=== PATIENT | female | born 1940 | race Caucasian/White ===

== ENCOUNTER 2023-09-06 16:24 | Emergency (ER) | payer MEDICARE, OTHER ==
[2023-09-06] MEDS: ACETAMINOPHEN 500 MG TABLET PO STA (17:14)
[2023-09-06] MEDS: LIDOCAINE-EPINEPH-TETRACAINE 3 ML SYRINGE TOP STA (17:18)
--- NOTE | 2023-09-06 18:46 | CT Report ---
PROCEDURE: Maxillofacial WO INDICATIONS: GLF, left eye hematoma, eyesocket vs rock TECHNIQUE: Noncontrast 1.5 mm thick axial images acquired from the mandible through the frontal sinuses, with co pablo and sagittal reformatting. For radiation dose reduction, the following was used: automated ex posure control, adjustment of mA and/or kV according to patient size. COMPARISON: Correlation is made with the accompanying imaging. FINDINGS: Image quality: Excellent. Bones and teeth: Orbital barbosa are intact. Sinus barbosa show no fracture or deformity. Nasal bones and septum are intact. There is mild chronic leftward nasal septal deviation. Visualized portions of the mandible demonstrate no fractures or subluxation. Zygomatic arches are intact. Pterygoid plate s are intact. Visualized portions of the skull base and auditory canals are intact. Sinuses: There is near complete opacification seen of the left maxillary sinus. This measures 33 Houn sfield units, which is consistent with blood. Mild mucosal thickening can be seen within the anterior left ethmoid air cells. The paranasal sinuses are otherwise within normal limits. No significant abn ormal fluid can be seen within the mastoid air cells. Soft tissues: Soft tissue swelling can be seen within the left forehead/periorbital region. Soft tiss ue gas is seen, which is reflective of soft tissue laceration. Vascular: Visualized vascular structures appear normal in the absence of contrast. Bony vascular fo ramina and canals are intact. IMPRESSION: Left forehead/left periorbital region soft tissue hematoma with laceration. No facial bone fracture can be seen. There is near complete opacification of the left maxillary sinus, with high density material, which i s attributed to blood. However, differential diagnosis includes chronic sinusitis with dense secretio ns. Reviewed by: Pascual Espino MD on 09/06/2023 5:44 PM SUZANNA Approved by: Pascual Espino MD on 09/06/2023 5:44 PM AKDT Station ID: [id number]
--- NOTE | 2023-09-06 18:48 | CT Report ---
PROCEDURE: Head WO INDICATIONS: GLF, face vs rock TECHNIQUE: Noncontrast 4.5 mm thick angled axial sections acquired from the foramen magnum to the vertex. For r adiation dose reduction, the following was used: automated exposure control, adjustment of mA and/or kV according to patient size. COMPARISON: Correlation is made with the accompanying imaging. FINDINGS: Image quality: There is streak artifact seen through the skull base. CSF spaces: Basal cisterns are patent. No extra-axial fluid collections. Ventricles are normal in size and shape. Brain: No midline shift. No intracranial masses or hemorrhage. Wallace-white matter interface is norm al. Skull and face: Soft tissue swelling with laceration can be seen involving the left forehead/left pe riorbital region. No regional fracture can be seen. Calvarium and visualized facial bones are intact, without suspicious lesions. Sinuses: The left maxillary sinus is nearly completely opacified with dense soft tissue material. The re is also moderate mucosal thickening involving the left anterior ethmoid air cells. The paranasal s inuses are otherwise unremarkable. No significant abnormal fluid can be seen within the mastoid air c ells. IMPRESSION: Left forehead/left periorbital soft tissue hematoma with laceration. Within the left maxillary sinus, there is hyperdense material, which likely represents blood. However , differential diagnosis includes chronic sinus disease. No intracranial hemorrhage is seen. No significant intracranial abnormality is seen. Reviewed by: Pascual Espino MD on 09/06/2023 5:46 PM AKCLYDE Approved by: Pascual Espino MD on 09/06/2023 5:46 PM AKDT Station ID: [id number]
--- NOTE | 2023-09-06 18:50 | CT Report ---
PROCEDURE: Cervical Spine WO INDICATIONS: GLF, face vs rock TECHNIQUE: Noncontrast 3 mm thick sections acquired from the skull base to the T4 level. Sagittal and coronal r eformats were then constructed. Dedicated oblique axial images were performed through the disk level s. For radiation dose reduction, the following was used: automated exposure control, adjustment of mA and/or kV according to patient size. COMPARISON: Correlation is made with the accompanying imaging. FINDINGS: Image quality: Excellent. Bones: No fractures or dislocations. Visualized superior ribs are intact. Multiple levels of under lying cervical spine degenerative change can be seen. Soft tissues: There is partial visualization of a left thyroid region mass measuring at least 7.2 cm . Associated mass effect can be seen upon the trachea, which is deviated to the left. Postoperative c lips are seen, which are suggestive of prior right thyroidectomy. Prevertebral soft tissues are lisbeth l in thickness. No paravertebral hematomas. No apical pneumothoraces. IMPRESSION: No acute cervical spine fracture can be seen. Multiple levels of underlying cervical spine degenerative change are seen. There is a left thyroid region soft tissue mass, with associated mass effect on the trachea, which is deviated to the left. Please correlate with known patient history. If not previously worked up, benton tional evaluation is recommended, beginning with a dedicated thyroid ultrasound. Reviewed by: Pascual Espino MD on 09/06/2023 5:49 PM SUZANNA Approved by: Pascual Espino MD on 09/06/2023 5:49 PM SUZANNA Station ID: [id number]
--- NOTE | 2023-09-06 19:50 | ED Physician Documentation ---
PD HPI HEAD INJURY - Stated complaint Stated Complaint: FALL - Chief complaint Chief Complaint: Trauma Hd/Nk - Additional information Additional information: 83-year-old female presents emergency department after a mechanical ground-level fall. Patient has a history of chronic lower back pain, hypercholesterolemia, hypothyroidism, osteoporosis. Patient presents emergency department via EMS says that she lost her footing fell forward and hit her left eye socket onto a rock. She says that she did not lose consciousness she is not any blood thinners she does not endorsing any neck pain but she does have obvious trauma to the left eye with significant amount of bleeding. Alert and oriented x 4 neurologically intact patient denies loss of consciousness. PD PAST MEDICAL HISTORY - Past Medical History Past Medical History: Yes Cardiovascular: High cholesterol Respiratory: None Neuro: None Endocrine/Autoimmune: HyPOthyroidism GI: None DETECTIVE INVESTIGATOR: None : None HEENT: None Psych: None Musculoskeletal: Osteoporosis Derm: None - Past Surgical History Past Surgical History: Yes /DETECTIVE INVESTIGATOR: Hysterectomy - Present Medications Home Medications: Ambulatory Orders Medication Instructions Recorded Confirmed HYDROcod/ACETAM 5/325 [[place] 5/325] 1 - 2 tablet PO Q6H PRN #14 tablet 09/06/23 - Allergies Allergies/Adverse Reactions: Allergies Allergy/AdvReac Type Severity Reaction Status Date / Time No Known Drug Allergies Allergy Verified 09/06/23 16:49 - Social History Does the pt smoke?: No Smoking Status: Never smoker Does the pt drink ETOH?: No Does the pt have substance abuse?: No - Immunizations Immunizations are current?: Yes - POLST Patient has POLST: No PD ED PE NORMAL - Vitals Vital signs reviewed: Yes - General General: Alert and oriented X 3, Well developed/nourished - Neck Neck: Supple, no meningeal sign, C-Spine cleared by NEXUS criteria - Cardiac Cardiac: RRR - Respiratory Respiratory: No respiratory distress - Abdomen Abdomen: Normal bowel sounds, Soft, Non tender, No organomegaly - Back Back: No CVA TTP, No spinal TTP - Derm Derm: Other (Left eyebrow laceration, left forhead laceration) - Extremities Extremities: No deformity, No tenderness to palpate, Normal ROM s pain, No edema, No calf tenderness / cord - Neuro Neuro: Alert and oriented X 3, account developer 2-12 intact, No motor deficit, No sensory deficit, Normal speech Eye Opening: Spontaneous Motor: Obeys Commands Verbal: Oriented GCS Score: 15 - Psych Psych: Normal mood PD ED PE EXPANDED - Eyes Eyes: Visual acuity - see nn (20/50-L, 20/50-R, 20/50 bilaterally), PERRL, Normal accommodation, EOMI, Left eye, Eyelid injury (large inferior eyelid laceration/alvulsion with significant swelling), Eyelid swelling, No eyelid FB (everted), Normal corneas, Other (negative Siedel sign, IOP L-21, R18. Significant hematoma to left periorbital region). No: Normal eyelids, Fluorescein uptake Results - Vitals Vitals: Vital Signs - 24 hr 09/06/23 09/06/23 09/06/23 16:40 18:46 20:00 Temperature 36.9 C Heart Rate 69 64 74 Respiratory 16 14 13 Rate Blood Pressure 160/73 H 156/72 H 116/78 O2 Saturation 99 99 98 09/06/23 09/06/23 09/06/23 22:00 23:00 23:50 Temperature Heart Rate 64 54 L 61 Respiratory 13 16 16 Rate Blood Pressure 122/73 127/67 156/76 H O2 Saturation 96 96 97 Oxygen O2 Source Room air - Labs Labs: Laboratory Tests 09/06/23 09/06/23 19:47 19:47 WBC 10.4 RBC 4.42 Hgb 13.1 Hct 40.1 MCV 90.7 MCH 29.6 MCHC 32.7 RDW 12.5 Plt Count 307 MPV 9.4 Neut # (Auto) 7.4 H Lymph # (Auto) 1.8 Wise # (Auto) 1.1 H Eos # (Auto) 0.1 Baso # (Auto) 0.0 Absolute Nucleated RBC 0.00 Nucleated RBC % 0.0 Sodium 138 Potassium 3.8 Chloride 103 Carbon Dioxide 29 Anion Gap 6.0 BUN 24 H Creatinine 0.8 Estimated GFR (MDRD) 68 L Glucose 87 Calcium 10.9 H Magnesium 1.8 Total Bilirubin 0.6 AST 23 ALT 17 Alkaline Phosphatase 77 Total Protein 7.6 Albumin 4.8 Globulin 2.8 Albumin/Globulin Ratio 1.7 Lipase 22 - Rads (name of study) Head CT without contrast Relevant Findings:: Final report received, EMP independent interpretation of test, Other (Left forehead/left periorbital soft tissue hematoma with laceration no intracranial hemorrhages) Cervical spine without Relevant Findings:: Final report received, EMP independent interpretation of test, Other (no acute cervical spine fracture or subluxation.) CT maxillofacial without Relevant Findings:: Final report received, EMP independent interpretation of test, Other (Medial maxillary wall sinus fracture, anterior maxillary wall fracture minimally displaced) Procedures - Laceration (location) Left eyebrow laceration Length in cm: 1.5 Wound type: Stellate, Into subcut fat, Clean Anesthesia: Lidocaine 1% Wound preparation: Irrigated copiously NS, Wound explored, To the base Skin layer closure: Nylon, Interrupted, Size #-0 - enter number (5-0), Sutures - enter # (3) Other: Patient tolerated well, No complications, Neurovascular intact, Dressing applied, Tetanus UTD left forehead laceration Length in cm: 2 Wound type: Linear, Into subcut fat Anesthesia: Lidocaine 1% Wound preparation: Irrigated copiously NS, Wound explored Skin layer closure: Nylon, Interrupted, Size #-0 - enter number (5-0), Sutures - enter # (3) Other: Patient tolerated well, No complications, Neurovascular intact, Dressing applied, Tetanus UTD PD Medical Decision Making - ED course ED course: 83-year-old female presents emergency department for head injury after mechanical ground-level fall. Patient appears to have most of the trauma to her left forehead left eye socket region. Patient has significant laceration/avulsion to her left lower eyelid that has completely gone through. There was concern about possible globe rupture although patient is able to have extraocular movement without any pain or difficulty. I also did a fluorescein exam and there is no fluorescein uptake negative Lai sign. There is a significant amount of bleeding coming from the left lower lid and there is also a significant amount of swelling as well as a hematoma to the upper eyelid with ecchymosis. She also has a left eyebrow to the lateral portion laceration was repaired with 3 sutures as well as a larger laceration above her left eyebrow on her forehead is about 2 cm in length and again repaired with another 3 sutures. [facility] and he does visualize the medial maxillary wall sinus fracture as well as anterior maxillary wall fracture and says there is nothing that needs to be done emergently for this right now this does not require hospitalization or transfer to [facility] although they would like to see patient outpatient in 3 to 5 days for follow-up. In regards to the patient's inferior lower eyelid laceration patient needs to be seen by [facility] ophthalmology for a lower eyelid repair. I spoke with Dr. Reece who agrees that patient should be transferred to [facility] for this lower eyelid repair. He has agreed to accept the patient for ER to ER transfer and will meet her in the emergency department to repair her lower eyelid. He recommended placing a thick layer of erythromycin ointment to the left lower eyelid to keep the wound bed moist until he is able to repair it. Head CT was complete for further evaluation no intracranial hemorrhages or abnormalities CT of the neck was also complete and no cervical fractures or subluxations are visualized. Patient will be transferred via EMS to [facility] so that we are able to help her control her pain and nausea she most likely also has a concussion on top of the additional injuries above given how hard she fell. She was given Dilaudid for pain Zofran for nausea I am prescribing a short course of short-acting opioid pain medication for this patient. 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 I have discussed that the opioids are for short term therapy only, and will not be refilled from the ED. Strict ER return precautions were given patient has contact now with ophthalmology and OMFS at [facility] who will be seeing her outpatient. Departure - Departure Disposition: 02 Transfer Acute Care Hosp Clinical Impression: Ground-level fall, Maxillary fracture, left side, initial encounter for closed fracture Eyelid laceration, left Qualifiers: Encounter type: initial encounter Qualified Code(s): S01.112A - Laceration without foreign body of left eyelid and periocular area, initial encounter Forehead laceration Qualifiers: Encounter type: initial encounter Qualified Code(s): S01.81XA - Laceration without foreign body of other part of head, initial encounter Instructions: ED Laceration Sure Close Prescriptions: HYDROcod/ACETAM 5/325 [[place] 5/325] 1 - 2 tablet PO Q6H PRN #14 tablet PRN Reason: Pain Comments: Thank you for trusting us with your care we have completed a head CT and it appears that you have a medial maxillary wall sinus fracture as well as an anterior maxillary wall fracture. [facility] should be reaching out to you to schedule a follow-up appointment in 3 to 5 days to reevaluate your facial fractures but at this point in time there is no need to hospitalize you for this. We are sending you home with some pain medications to help you with managing your pain you are going to be very sore these next several days you can alternate between Tylenol and ibuprofen and add as needed [place] for additional pain management. Apply ice for 20 minutes at a time 1 hour off to other areas of soreness. Come back for any signs of infection which would include: Redness, swelling, drainage, increased pain, or fevers. You can wash it soap and water. Keep it covered and moist with bacitracin ointment which is available over the counter; avoid neosporin. Follow-up with your physician in 5 days for suture removal. I am prescribing a short course of short-acting opioid pain medication for this patient. 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 I have discussed that the opioids are for short term therapy only, and will not be refilled from the ED. Forms: PCP List Discharge Date/Time: 09/07/23 00:19
[2023-09-06 19:59] LABS: BASOPHILS % (AUTO) 0.4 %; EOSINOPHILS # (AUTO) 0.1 10^3/uL (0.0-0.7); EOSINOPHILS % (AUTO) 0.7 %; HCT - HEMATOCRIT 40.1 % (37.0-47.0); HGB - HEMOGLOBIN 13.1 g/dL (12.0-16.0); LYMPHOCYTES # (AUTO) 1.8 10^3/uL (1.5-3.5); LYMPHOCYTES % (AUTO) 17.4 %; MEAN CORPUSCULAR HEMOGLOBIN 29.6 pg (27.0-31.0); MEAN CORPUSCULAR HGB CONC 32.7 g/dL (32.0-36.0); MEAN CORPUSCULAR VOLUME 90.7 fL (81.0-99.0); MEAN PLATELET VOLUME 9.4 fL (7.9-10.8); MONOCYTES # (AUTO) 1.1 10^3/uL (0.0-1.0); MONOCYTES % (AUTO) 10.1 %; NEUTROPHILS # (AUTO) 7.4 10^3/uL (1.5-6.6); PLT - PLATELET COUNT 307 10^3/uL (130-450); RED BLOOD COUNT 4.42 10^6/uL (4.20-5.40); RED CELL DISTRIBUTION WIDTH 12.5 % (12.0-15.0); WHITE BLOOD COUNT 10.4 x10^3/uL (4.8-10.8)
[2023-09-06] MEDS ORDERED: LIDOCAINE-MPF 2% 5 ML VIAL ONE (20:02)
[2023-09-06] MEDS: ONDANSETRON 4 MG/2 ML VIAL IVP STA (20:03)
[2023-09-06] MEDS: HYDROmorphone 0.5 MG/0.5 ML SYRINGE IVP STA (20:04)
[2023-09-06 20:10] LABS: ALBUMIN 4.8 g/dL (3.2-5.5); ALBUMIN/GLOBULIN RATIO 1.7 (1.0-2.2); BILIRUBIN,TOTAL 0.6 mg/dL (0.2-1.0); CALCIUM 10.9 mg/dL (8.5-10.3); CREATININE 0.8 mg/dL (0.6-1.3); MAGNESIUM 1.8 mg/dL (1.7-2.3); POTASSIUM 3.8 mmol/L (3.5-4.5); TOTAL PROTEIN 7.6 g/dL (6.4-8.9)
[2023-09-06] MEDS: LIDOCAINE 2%-EPI 1:100000 20 ML MDV SUBQ STA (20:23)
[2023-09-06] MEDS: LIDOCAINE 2% 10 ML MDV SUBQ ONE (20:23)
[2023-09-06] MEDS: BACITRACIN ZINC OINT 1 PACKET TOP STA (20:59)
[2023-09-06] MEDS: ERYTHROMYCIN OPHTH OINT 1 GM TUBE LEFTEYE STA (20:59)
[2023-09-06 23:57] VITALS: BP 156/76; O2SAT 97
[2023-09-07] MEDS: ONDANSETRON 4 MG/2 ML VIAL IVP STA (00:11)
[2023-09-07] MEDS: HYDROmorphone 0.5 MG/0.5 ML SYRINGE IVP STA (00:12)
== END 2023-09-07 00:19 | disposition short-term general hospital (02) ==
LOC: ED 16:24
DX: S01.112A Laceration without foreign body of left eyelid and periocular area, initial encounter (principal); S01.81XA Laceration without foreign body of other part of head, initial encounter; S02.40DA Maxillary fracture, left side, initial encounter for closed fracture; W18.30XA Fall on same level, unspecified, initial encounter; Y93.9 Activity, unspecified; E78.00 Pure hypercholesterolemia, unspecified; E03.9 Hypothyroidism, unspecified
CPT/HCPCS: 12013; 36415; 70450; 70486; 72125; 80053; 83690; 83735; 85025; 96374; 96375; 96376; 99285; A9270; J1170; J3490